=== PATIENT | male | born 1980 | race Caucasian/White ===

== ENCOUNTER 2024-01-27 18:21 | Inpatient (IN) | payer OTHER ==
[2024-01-27 20:55] LABS: Absolute Eosinophils 0.2 K/uL (0-0.5); Absolute Lymphocytes (CBC) 1.6 K/uL (0.7-4.9); Absolute Monocytes 0.8 K/uL (0.1-1.3); Absolute Neutrophil 5.8 K/uL (1.8-8.0); Basophils % 0.3 % (0-1.3); Hematocrit 29.6 % (39.6-49.0); Lymphocytes % 19.2 % (15.3-44.8); MCH 28.6 pg (27.0-35.0); MCHC 33.8 g/dL (32.0-36.0); MCV 84.4 fL (80-100); MPV 6.7 fL (7.6-11.3); Monocytes % 9.2 % (3.3-12.3); Neutrophils % 69.3 % (41.7-73.7); PTT, Activated Partial Thromb 30.3 SECONDS (24.3-36.9); Platelets 336 thou/uL (152-406); Protime INR 1.09; Red Cell Distribution Width 15.5 % (12.1-15.2)
[2024-01-27 21:02] LABS: Albumin 2.9 g/dL (3.4-5.0); Albumin/Globulin Ratio 0.6 (1.1-1.8); Anion Gap 9.7 mEq/L (5.0-15.0); Bilirubin Total 0.2 mg/dL (0.2-1.0); Globulin 4.5 g/dL (2.3-3.5); Potassium 3.7 mEq/L (3.5-5.1); Protein, Total 7.4 g/dL (6.4-8.2)
[2024-01-27 21:05] LABS: Nucleated Red Blood Cells % 0.1 % (0-0)
[2024-01-27] MEDS ORDERED: NA CHLORIDE 0.9% 250 ML ONE (21:17)
[2024-01-27] MEDS ORDERED: VANCOMYCIN 1 GM/VIAL ONE (21:17)
[2024-01-27] MEDS ORDERED: ONDANSETRON 4 MG/2 ML VIAL ONE (21:17)
[2024-01-27] MEDS ORDERED: MORPHINE 4 MG/ML SYR ONE (21:17)
--- NOTE | 2024-01-27 21:21 | EDPHYS ---
Physician Documentation [facility] Name: Delvis Chaudhary Age: 43 yrs Sex: Male : 1980 Arrival Date: 01/27/2024 Time: 18:21 Bed 16 Private MD: ED Physician Lg Treviño HPI: 01/26 21:24 This 43 yrs old Male presents to ER via Ambulatory with complaints of BL Leg-open wound.kb 21:24 Patient is a 43-year-old male who presents for open wounds to bilateral lower kb extremities that started 3 years ago and have gotten progressively worse. States he has had intermittent fevers. 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 Historical: - Allergies: 21:23 No Known Allergies; tm6 - PMHx: 21:23 Drug abuse; Asthma; tm6 - Immunization history:: Adult Immunizations unknown. - Social history:: Smoking status: unknown Patient uses street drugs, fentanyl , Patient uses street drugs, Methamphetamine (Meth). ROS: 21:11 Constitutional: As per HPI kb Exam: 21:11 Constitutional: This is a well developed, well nourished patient who is awake, alert, kb and in no acute distress. Head/Face: Normocephalic, atraumatic. ENT: Moist Mucous membranes Cardiovascular: Regular rate Respiratory: Respirations even and unlabored. No increased work of breathing. Talking in full sentences MS/ Extremity: Pulses equal, no cyanosis. Neurovascular intact. Full, normal range of motion. Neuro: Awake and alert, GCS 15, oriented to person, place, time, and situation. Moves all extremities. Normal gait. 21:11 Skin: multiple open wounds with purulent drainage to bilateral lower extremities with cellulitis. Vital Signs: 18:55 BP 140 / 100; Pulse 113; Resp 16; Temp 98.4; Pulse Ox 100% ; ap3 19:01 Weight 104.33 kg; Height 5 ft. 10 in. ; Pain 7/10; ap3 20:01 BP 121 / 67; Pulse 84; Pulse Ox 98% on R/A; Pain 7/10; tm6 21:06 BP 128 / 100; Pulse 93; Resp 20; Pulse Ox 100% on R/A; Pain 7/10; tm6 22:12 BP 129 / 89; Pulse 95; Resp 26; Pulse Ox 95% on R/A; Pain 0/10; tm6 19:01 Body Mass Index 33.00 (104.33 kg, 177.8 cm) ap3 19:01 Pain Scale: Adult ap3 20:01 Pain Scale: Adult tm6 21:06 Pain Scale: Adult tm6 22:12 Pain Scale: Adult tm6 MDM: 18:27 Patient medically screened. kb 21:12 Data reviewed: vital signs, nurses notes. kb 21:24 Differential diagnosis: abscess, allergic reaction, cellulitis, insect bite. kb Consideration of Admission/Observation Patient was admitted/placed on observation. Escalation of care including admission/observation considered. Management of patient was discussed with the following: Hospitalist: Dr Villatoro accepts pt for admission. Counseling: I had a detailed discussion with the patient and/or guardian regarding the historical points, exam findings, and any diagnostic results supporting the discharge/admit diagnosis, lab results, the need for further work-up and treatment in the hospital. 01/26 19:03 Order name: Blood Culture Adult (2) kb 01/26 19:03 Order name: CBC with Diff; Complete Time: 21:11 kb 01/26 19:03 Order name: CMP; Complete Time: 21:03 kb 01/26 19:03 Order name: Lactate w/ 2H reflex if indic.; Complete Time: 21:11 kb 01/26 19:03 Order name: Protime (+inr); Complete Time: 21:03 kb 01/26 19:03 Order name: Ptt, Activated; Complete Time: 21:03 kb 01/26 21:03 Order name: Wound Culture kb 01/26 21:59 Order name: CBC with Automated Diff EDMS 01/26 21:59 Order name: CBC with Automated Diff EDMS 01/26 21:59 Order name: CBC with Automated Diff EDMS 01/26 21:59 Order name: CBC with Automated Diff EDMS 01/26 21:59 Order name: Comprehensive Metabolic Panel EDMS 01/26 21:59 Order name: Comprehensive Metabolic Panel EDMS 01/26 21:59 Order name: Comprehensive Metabolic Panel EDMS 01/26 21:59 Order name: Comprehensive Metabolic Panel EDMS 01/26 19:03 Order name: EKG; Complete Time: 19:03 kb 01/26 21:59 Order name: [facility] 01/26 19:03 Order name: Accucheck; Complete Time: 20:41 kb 01/26 19:03 Order name: Cardiac monitoring; Complete Time: 19:29 kb 01/26 19:03 Order name: EKG - Nurse/Tech; Complete Time: 19:29 kb 01/26 19:03 Order name: IV Saline Lock - Large Bore; Complete Time: 20:41 kb 01/26 19:03 Order name: Labs collected and sent; Complete Time: 20:41 kb 01/26 19:03 Order name: O2 Per Protocol; Complete Time: 19:29 kb 01/26 19:03 Order name: O2 Sat Monitoring; Complete Time: 19:29 kb 01/26 19:03 Order name: Vital Signs; Complete Time: 20:41 kb Administered Medications: 21:32 Drug: morphine IVP or IV 4 mg IVP once over 4 mins Route: IVP; Infused Over: 4 mins; tm6 Site: right forearm; 21:32 Drug: Ondansetron IVP 4 mg IVP once; over 2 minutes Route: IVP; Site: right forearm; tm6 22:11 Drug: vancoMYCIN IVPB 1 grams IVPB once over 2 hrs Route: IVPB; Infused Over: 2 hrs; tm6 Site: right forearm; Disposition Summary: 01/27/24 21:20 Hospitalization Ordered Notes: Hospitalization Status: Inpatient Admission kb Provider: Jeff Villatoro [facility] kb Condition: Stable kb Problem: an ongoing problem kb Symptoms: are unchanged kb Bed/Room Type: Standard Room Assignment: 405(01/27/24 22:29) Diagnosis - Cellulitis of left lower limb kb - Cellulitis of right lower limb kb - Leg Laceration/ Open wound of lower leg kb Forms: - Medication Reconciliation Form kb - SBAR form kb - Leadership Thank You Letter kb Signatures: Dispatcher [employer] [facility] Stella Adair FNP-C FNP-Chela Bahena RN RN cg Prokisch, Amanda, RN RN Marcell Ryder RN RN tm6 Corrections: (The following items were deleted from the chart) 22:29 21:20 kb cg
--- NOTE | 2024-01-27 21:21 | ER ---
Nurse's Notes [facility] Name: Delvis Chaudhary Age: 43 yrs Sex: Male : 1980 Arrival Date: 01/27/2024 Time: 18:21 Bed 16 Private MD: Diagnosis: Cellulitis of left lower limb;Cellulitis of right lower limb;Leg Laceration/ Open wound of lower leg Presentation: 01/26 18:55 Chief complaint: Patient states: he has lower bilateral leg wounds that will not heal, ap3 that have been slowly getting worse over 3+ years. patient has not had any medical attention for these wounds. patient has been attempting to take care of these wounds himself at home. Coronavirus screen: At this time, the client does not indicate any symptoms associated with coronavirus-19. Ebola Screen: No symptoms or risks identified at this time. Initial Sepsis Screen: Does the patient meet any 2 criteria? HR > 90 bpm. Yes Does the patient have a suspected source of infection? No. Patient's initial sepsis screen is negative. Risk Assessment: Do you want to hurt yourself or someone else? Patient reports no desire to harm self or others. Onset of symptoms is unknown. 18:55 Method Of Arrival: Ambulatory ap3 18:55 Acuity: SALOMÓN 3 ap3 Triage Assessment: 19:00 General: Appears in no apparent distress. Behavior is calm, cooperative. Pain: ap3 Complains of pain in right leg and left leg. Neuro: Level of Consciousness is awake, alert, obeys commands, Oriented to person, place, time, situation. Cardiovascular: Patient's skin is warm and dry. Respiratory: Airway is patent Respiratory effort is even, unlabored, Respiratory pattern is regular, symmetrical. Derm: Wound noted right leg and left leg. Historical: - Allergies: 21:23 No Known Allergies; tm6 - PMHx: 21:23 Drug abuse; Asthma; tm6 - Immunization history:: Adult Immunizations unknown. - Social history:: Smoking status: unknown Patient uses street drugs, fentanyl , Patient uses street drugs, Methamphetamine (Meth). Screenin:04 [facility] ED Fall Risk Assessment (Adult) History of falling in the last 3 months, tm6 including since admission No falls in past 3 months (0 pts) Confusion or Disorientation No (0 pts) Intoxicated or Sedated No (0 pts) Impaired Gait Yes (1 pt) Mobility Assist Device Used No (0 pt) Altered Elimination No (0 pt) Score/Fall Risk Level 0 - 2 = Low Risk Oriented to surroundings, Maintained a safe environment. Abuse screen: Denies threats or abuse. Denies injuries from another. Nutritional screening: No deficits noted. Tuberculosis screening: No symptoms or risk factors identified. Assessment: 19:52 General: Appears in no apparent distress. Behavior is calm, cooperative. Pain: tm6 Complains of pain in right leg and left leg Pain currently is 7 out of 10 on a pain scale. Quality of pain is described as throbbing. 19:58 Reassessment: patient reports taking 30 ibuprofen every four hours, as well as smoking tm6 fentanyl prior to coming into ED. Neuro: Level of Consciousness is awake, alert, obeys commands, Oriented to person, place, time, situation. Cardiovascular: Capillary refill < 3 seconds Patient's skin is warm and dry. Rhythm is sinus rhythm. Respiratory: Airway is patent Respiratory effort is even, unlabored, Respiratory pattern is regular, symmetrical. GI: Abdomen is flat, non-distended. : No signs and/or symptoms were reported regarding the genitourinary system. EENT: No signs and/or symptoms were reported regarding the EENT system. Derm: Skin Wound noted right leg and left leg Wound is large non healing wounds around both legs, bilaterally Reports pain that is 7 out of 10 on a pain scale. non-healing wounds for 3 years. Musculoskeletal: No signs and/or symptoms reported regarding the musculoskeletal system. 21:06 Reassessment: Patient and/or family updated on plan of care and expected duration. Pain tm6 level reassessed. Patient is alert, oriented x 3, equal unlabored respirations, skin warm/dry/pink. 22:12 Reassessment: No changes from previously documented assessment. Patient is alert, tm6 oriented x 3, equal unlabored respirations, skin warm/dry/pink. 23:05 Reassessment: report faxed. tm6 Vital Signs: 18:55 BP 140 / 100; Pulse 113; Resp 16; Temp 98.4; Pulse Ox 100% ; ap3 19:01 Weight 104.33 kg; Height 5 ft. 10 in. ; Pain 7/10; ap3 20:01 BP 121 / 67; Pulse 84; Pulse Ox 98% on R/A; Pain 7/10; tm6 21:06 BP 128 / 100; Pulse 93; Resp 20; Pulse Ox 100% on R/A; Pain 7/10; tm6 22:12 BP 129 / 89; Pulse 95; Resp 26; Pulse Ox 95% on R/A; Pain 0/10; tm6 19:01 Body Mass Index 33.00 (104.33 kg, 177.8 cm) ap3 19:01 Pain Scale: Adult ap3 20:01 Pain Scale: Adult tm6 21:06 Pain Scale: Adult tm6 22:12 Pain Scale: Adult tm6 ED Course: 18:23 Patient arrived in ED. ra3 18:27 [facility]air [facility]C [facility]. kb 18:27 Lg Treviño MD is Attending Physician. kb 19:00 Triage completed. ap3 19:01 Arm band placed on right wrist. ap3 19:06 Marcell Johnson RN is Primary Nurse. tm6 19:29 EKG done, by ED staff, reviewed by Stella LIU. tm6 20:04 Patient has correct armband on for positive identification. Placed in gown. Bed in low tm6 position. Call light in reach. Side rails up X2. Provided Education on: plan of care. Client placed on continuous cardiac and pulse oximetry monitoring. NIBP monitoring applied. monitor and storage bin tender on. Pulse ox on. NIBP on. Door closed. Noise minimized. Lights dimmed. Pillow given. 20:25 Inserted saline lock: 20 gauge in right forearm, using aseptic technique. ,using nj1 aseptic technique. Ultrasound guided. Catheter tip well visualized within vasculature during placement. Blood collected. 21:12 Wound Culture Sent. tm6 21:19 Jeff Villtaoro MD is Hospitalizing Provider. kb 21:26 Wound Culture Sent. tm6 23:40 No provider procedures requiring assistance completed. Patient admitted, IV remains in tm6 place. Administered Medications: 21:32 Drug: morphine IVP or IV 4 mg IVP once over 4 mins Route: IVP; Infused Over: 4 mins; tm6 Site: right forearm; 21:32 Drug: Ondansetron IVP 4 mg IVP once; over 2 minutes Route: IVP; Site: right forearm; tm6 22:11 Drug: vancoMYCIN IVPB 1 grams IVPB once over 2 hrs Route: IVPB; Infused Over: 2 hrs; tm6 Site: right forearm; Medication: 20:05 VIS not applicable for this client. tm6 Outcome: 21:20 Decision to Hospitalize by Provider. kb 23:41 Admitted to Med/surg accompanied by tech, via wheelchair, room 405, with chart, Report tm6 called to [facility], report faxed 23:41 Condition: stable 23:41 Instructed on the need for admit, 23:42 Patient left the ED. tm6 Signatures: Stella Adair, JAVA WEB ARCHITECT-C JAVA WEB ARCHITECT-Sally Christina RN RN ap3 Cindy Winslow RN RN nj1 Marcell Johnson RN RN tm6 Urvashi Hart ra3
[2024-01-27] MEDS ORDERED: ACETAMINOPHEN 500 MG TAB PO PRN (21:52)
[2024-01-27] MEDS ORDERED: ONDANSETRON 4 MG/2 ML VIAL IV PRN (21:52)
[2024-01-27] MEDS: NA CHLORIDE 0.9% 1,000 ML IV SCH (22:00)
--- NOTE | 2024-01-27 22:11 | P.HP ---
Certification for Inpatient Patient admitted to: Inpatient With expected LOS: >2 Midnights Practitioner: I am a practitioner with admitting privileges, knowledge of patient current condition, hospital course, and medical plan of care. Services: Services provided to patient in accordance with Admission requirements found in Title 42 Section 412.3 of the Code of Federal Regulations Patient History Date of Service: 01/28/24 Reason for admission: Bilateral lower extremity cellulitis. History of Present Illness: 43-year-old male patient who has a medical history significant drug of abuse was evaluated for episode of worsening lower extremity cellulitis. He reported has been dealing with lower extremity wounds for 8 years and he was in [place] before he came to [place]. He had significant lesions in the lower extremity from mid leg to the ankles bilaterally with hyperemia and necrotic edges. He was started on broad-spectrum antibiotic therapy and he was asked to be admitted for inpatient care. He did report self-care and had a very vague story as regards his wound care related issue. Allergies No Known Allergies Allergy (Unverified 01/28/24 00:50) Review of Systems General: Unremarkable Eyes: Unremarkable ENT: Unremarkable Respiratory: Unremarkable Cardiovascular: Unremarkable Gastrointestinal: Unremarkable Musculoskeletal: Unremarkable Integumentary: As per HPI Neurological: Unremarkable Lymphatics: Unremarkable Physical Examination - Physical Exam General: Alert, Oriented x3 HEENT: Atraumatic Respiratory: Normal air movement Cardiovascular: Regular rate/rhythm, Normal S1 S2 Gastrointestinal: Soft and benign Musculoskeletal: No swelling Integumentary: Skin breakdown, Skin lesion Neurological: Normal speech, Normal strength at 5/5 x4 extr - Studies Laboratory Data (last 24 hrs) 01/27/24 01/27/24 01/27/24 20:25 20:25 20:25 WBC 8.40 Hgb 10.0 L Hct 29.6 L Plt Count 336 PT 12.0 INR 1.09 APTT 30.3 Sodium 142 Potassium 3.7 BUN 23 H Creatinine 0.99 Glucose 97 Total Bilirubin 0.2 AST 21 ALT 34 Alkaline Phosphatase 64 Assessment and Plan - Plan Bilateral lower extremity cellulitis. Etiology of wounds in the lower extremity is yet to be determined but the history is very vague. He is does have chronic wound and reports no history of cancer. We have consulted wound care for management. Will continue empiric antibiotic therapy with cefepime and vancomycin for management of cellulitis pending further review. Review of cultures for adjustment. Patient may need debridement. Drug of abuse use: Patient reported that he has been having issues with drug of abuse use and had relapsed because he could not follow-up with methadone clinic. Will continue to discourage drug of abuse use. Prophylaxis: Lovenox for DVT prophylaxis. CODE STATUS: Full code. Disposition: We will treat his mild bilateral cellulitis of the lower extremity and he will be discharged once his plan of care is finalized. - Advance Directives Does patient have a Living Will: No Does patient have a Durable POA for Healthcare: No
[2024-01-27] MEDS ORDERED: HYDROCODONE/APAP 7.5/325 MG TAB ONE (23:47)
[2024-01-27] MEDS: HYDROCODONE/APAP 7.5/325 MG TAB PO PRN (23:50)
[2024-01-28 01:27] VITALS: BP 132/90; TEMP 97.6; O2SAT 95
[2024-01-28 02:54] VITALS: BMI 33.0
[2024-01-28] MEDS ORDERED: VANCOMYCIN 1.5 GM in NA CHLORIDE 0.9% 500 ML IVPB SCH (09:00)
[2024-01-28] MEDS ORDERED: CEFEPIME 1 GM in NA CHLORIDE 0.9% 100 ML IV SCH (09:00)
[2024-01-28] MEDS ORDERED: ENOXAPARIN 40 MG/0.4 ML SQ SCH (09:00)
[2024-01-28] MEDS ORDERED: VANCOMYCIN 1.75 GM in NA CHLORIDE 0.9% 500 ML IVPB SCH (09:00)
--- NOTE | 2024-01-29 14:30 | EKG ---
Test Date: 2024-01-27 Test Time: 18:17:24 [employer] Heater Operator: MINNIE MEASUREMENT RESULTS: Intervals: Rate: 99 NE: 136 QRSD: 84 QT: 344 QTc: 441 [place]: P: 42 NE: 136 QRS: 40 T: 36 INTERPRETIVE STATEMENTS: Normal sinus rhythm Normal ECG No previous ECG available for comparison Electronically Signed On 01-29-24 14:24:23 CDT by Filiberto Vizcaino
== END 2024-01-28 04:15 | disposition left against medical advice (07) | DRG 603 ==
LOC: ER 18:21 → ERHOLD 21:46 → 4TH 23:30
PROVIDERS: ADMIT Internal Medicine Nephrology; ATTEND Hospitalist
DX: L03.116 Cellulitis of left lower limb (principal); L03.115 Cellulitis of right lower limb; S81.819A Laceration without foreign body, unspecified lower leg, initial encounter; Z53.29 Procedure and treatment not carried out because of patient's decision for other reasons
CPT/HCPCS: 36415; 80053; 83605; 85025; 85610; 85730; 87040; 87070; 87077; 87186; 87205; 93005; 96374; 96375; 99285; J2405; J7030; J7040; J7050